=== PATIENT | male | born 1940 | race Caucasian/White ===

== ENCOUNTER 2016-06-16 08:13 | Day surgery (SDC) | payer BC ==
--- NOTE | ~2016-06-16 | EGD ---
EGD REPORT [facility] [address] [place]. [address] NAME: CATRACHITO JOHNSON : 40 STATUS : REG [facility] PAT#: [id number] AGE: 75 ADM/REG DATE : 06/16/16 MR#: [id number] REPORT SERV DATE: 06/16/16 DICTATED BY: YRIS MATTHEW DATE: 06/16/16 REPORT STATUS : Draft TRANSCRIBED BY: [employer] DATE: 06/16/16 [facility] Patient Name: Catrachito Johnson Date of : 1940 Attending MD: YRIS MATTHEW MD Procedure Date No Time: 06/16/2016 Procedure: Colonoscopy Indications: Rectal bleeding, FH of Colon Cancer - 1st degree relative, FH of Colon Cancer -distant relative Referring MD: SABINE MICHEL MD Medicines: as per anesthesia Complications: No immediate complications. Procedure: Pre-Anesthesia Assessment: - ASA Grade Assessment: III - A patient with severe systemic disease. After I obtained informed consent, the scope was passed under direct vision. Throughout the procedure, the patient's blood pressure, pulse, and oxygen saturations were monitored continuously. The [facility] [id number] was introduced through the anus and advanced to the cecum, identified by appendiceal orifice and ileocecal valve. The colonoscopy was somewhat difficult due to multiple diverticula in the colon and a tortuous colon. The patient tolerated the procedure. The quality of the bowel preparation was adequate to identify polyps. Findings: The perianal and digital rectal examinations were normal. A sessile polyp was found in the ascending colon. The polyp was 6 mm in size. The polyp was removed with a jumbo cold forceps. Resection and retrieval were complete. Multiple small and large-mouthed diverticula were found in the sigmoid colon, in the descending colon, in the transverse colon and in the ascending colon. Internal hemorrhoids were found during endoscopy and were mild. xrt changes distal rectum Impression: - One 6 mm polyp in the ascending colon. Resected and retrieved. - Diverticulosis in the sigmoid colon, in the descending colon, in the transverse colon and in the ascending colon. - Internal hemorrhoids. Recommendation: - Await pathology results. EGD REPORT [address] [address] NAME: CATRACHITO JOHNSON : [birth year] STATUS : REG [facility] PAT#: [id number] AGE: 75 ADM/REG DATE : 06/16/16 MR#: [id number] REPORT SERV DATE: 06/16/16 DICTATED BY: YRIS MATTHEW. DATE: 06/16/16 REPORT STATUS : Draft TRANSCRIBED BY: [employer] DATE: 06/16/16 - Repeat colonoscopy for surveillance based on pathology results. Procedure Code(s): --- Professional --- 25612, Colonoscopy, flexible, proximal to splenic flexure; with biopsy, single or multiple Diagnosis Code(s): --- Professional --- D12.2, Benign neoplasm of ascending colon K64.8, Other hemorrhoids K57.30, Diverticulosis of large intestine without perforation or abscess without bleeding K62.5, Hemorrhage of anus and rectum Z80.0, Family history of malignant neoplasm of digestive organs CPT copyright 2013 [employer]. All rights reserved. The codes documented in this report are preliminary and upon phlebotomist medical lab assistant review may be revised to meet current compliance requirements. YRIS MATTHEW MD 06/16/2016 9:43 AM This report has been signed electronically. Number of Addenda: 0 Note Initiated On: 06/16/2016 9:00 AM Scope Withdrawal Time 0 hours 8 minutes 15 seconds [address] [place] [address]
[~2016-06-16 08:13] MED LIST: ALEVE220 MG PO; ASAB PO; CARDCD240 PO; CASODEX 50 MG T50 MG PO; COUMADIN3 MG PO; COUMADIN4 MG PO; ELIQUIS 5 MG TAB5 MG PO; LIPITOR20 PO; LOP100 PO; METAMUCIL CAN7 OZ PO; NIACIN TR1000 MG PO; NIASPAN750 PO; PRIN10 PO; PRIN2.5 PO; TOPXL100 PO; TYLENOL ARTH650 MG PO; VYTORIN 10/20 T1 TAB PO
== END 2016-06-16 23:59 | disposition home or self-care (01) ==
LOC: DMU 08:13
PROVIDERS: Internal Medicine Gastroenterology
PROC: 0DBK8ZX Excision of Ascending Colon, Via Natural or Artificial Opening Endoscopic, Diagnostic (ICD-10-PCS; principal; 2016-06-16 09:00)
DX: K63.5 Polyp of colon (principal); K64.8 Other hemorrhoids; K57.30 Diverticulosis of large intestine without perforation or abscess without bleeding; I48.91 Unspecified atrial fibrillation; I25.10 Atherosclerotic heart disease of native coronary artery without angina pectoris; I10 Essential (primary) hypertension; E78.00 Pure hypercholesterolemia, unspecified; M06.9 Rheumatoid arthritis, unspecified; Z95.1 Presence of aortocoronary bypass graft; Z80.0 Family history of malignant neoplasm of digestive organs; Z85.46 Personal history of malignant neoplasm of prostate; Z79.82 Long term (current) use of aspirin; Z79.899 Other long term (current) drug therapy; Z98.890 Other specified postprocedural states; Z98.41 Cataract extraction status, right eye; Z98.42 Cataract extraction status, left eye
CPT/HCPCS: 88305

== ENCOUNTER 2016-11-30 02:45 | Observation (INO) | payer BC ==
[~2016-11-30] VITALS: Ht 180.3 cm; Wt 105.2 kg
--- NOTE | ~2016-11-30 | HP ---
History And Physical [id number] [place]. [address] NAME: CATRACHITO LOAIZA : 40 STATUS : ADM Edi PAT#: [id number] AGE: 76 ADM/REG DATE : 11/30/16 MR#: [id number] REPORT SERV DATE: 11/30/16 DICTATED BY: EUGENE SNOW DATE: 11/30/16 REPORT STATUS : Draft TRANSCRIBED BY: [employer] DATE: 11/30/16 DATE OF ADMISSION: 11/30/2016 REASON FOR ADMISSION: Nausea, abdominal pain, and small bowel obstruction on CT. HISTORY OF PRESENT ILLNESS: This is a very pleasant, 76-year-old gentleman, presents with a one-day history of abdominal pain. It was initially in the right lower quadrant and described as "gas." The patient played golf later in the day and had progressive abdominal distention and bloating. He had progressive pain across the entire abdomen and presented to the emergency department. He is nontoxic with a normal white blood cell count and a heart rate of 74. He has a history of atrial fibrillation, on anti-platelet therapy. He has a history of coronary artery disease with coronary artery bypass and stent placement and hypercholesterolemia. He had prostate cancer with robotic prostatectomy and radiation. He states his PSA has been rising. He denies any other constitutional symptoms. He had a recent colonoscopy per Dr. Keating. They found diverticulosis and no report per the patient of other abnormalities. He had a CT scan here that revealed cholelithiasis without any evidence of obstruction or inflammation, bilateral inguinal hernias, and an incisional hernia. He was also noted to have dilated small bowel loops in the proximal to mid small bowel with no transition point, and inflammatory changes in the involved associated mesentery. In light of the patient's symptoms and pain and history of rising PSA, he will be admitted for observation. He states he is currently having flatus and therefore after discussion with the patient, we will not treat with an NG tube at this time and reserve it for failure of improvement with IV fluids and bowel rest. He is in agreement with the current treatment plan and diagnosis. His is at the bedside. PAST MEDICAL HISTORY: As above. PAST SURGICAL HISTORY: Appendectomy and prostatectomy. ALLERGIES: NO KNOWN DRUG OR LATEX ALLERGIES. FAMILY HISTORY: Negative for colon cancer or polyps. SOCIAL HISTORY: The patient is . He lives with his spouse. He denies tobacco or illicit drug usage. He drinks alcohol rarely. 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 REVIEW OF SYSTEMS: The patient has abdominal pain and nausea. He has a history of constipation but none at this time. He has some urinary incontinence. He denies any chest pain, shortness of breath, dyspnea on exertion, syncope, palpitations, jaundice, itching, bright red blood per rectum, melena, or change in the caliber of his stools. He has no emesis and specifically, no coffee-grounds emesis. PHYSICAL EXAMINATION: GENERAL: A well-developed male, in no apparent distress. NECK: Supple. No adenopathy. History And Physical [address] [address] NAME: CATRACHITO LOAIZA : 40 STATUS : ADM Edi PAT#: [id number] AGE: 76 ADM/REG DATE : 11/30/16 MR#: [id number] REPORT SERV DATE: 11/30/16 DICTATED BY: EUGENE SNOW DATE: 11/30/16 REPORT STATUS : Draft TRANSCRIBED BY: EVANGELINA DATE: 11/30/16 CARDIOVASCULAR: Regular rate and rhythm. RESPIRATORY: Clear to auscultation. ABDOMEN: Soft. The patient has some diffuse abdominal tenderness. He has well-healed incisions. He has some mild voluntary guarding, but no peritoneal signs or rebound. BACK: No CVA tenderness. EXTREMITIES: No clubbing, cyanosis, edema, or jaundice. LABORATORY DATA: White blood cell count 7900, H and H 10.6 and 30.5, blood glucose 114. Lactate 1.6. Liver function studies are normal. ASSESSMENT: 1. Small bowel obstruction on CT with abdominal pain and distention. 2. History of prostate cancer, rising PSA. 3. Atrial fibrillation with anti-platelet therapy. 4. Coronary artery disease, status post coronary artery stent placement and coronary artery bypass. 5. Hyperlipidemia. PLAN: The patient will be admitted for bowel rest, IV fluids and serial physical exam and imaging. We will hold Eliquis for now in case the patient needs surgical intervention. We will cover with heparin in the interim until repeat exam and imaging in the a.m. SAGE/EVANGELINA Eugene Snow M.D. / [id number] CC: Sandip Kinsey D.O. Charles Lee Jackson, M.D.
[2016-11-30 04:07] LABS: BASOPHILS 0.1 %; BASOPHILS ABSOLUTE 0.01 10/3/uL (0.0-0.16); EOSINOPHILS 0.5 %; EOSINOPHILS ABSOLUTE 0.04 10/3/uL (0.0-0.53); IMMATURE GRANULOCYTES 0.1 %; IMMATURE GRANULOCYTES ABSOLUTE 0.01 10/3/uL (0.0-0.11); LYMPHOCYTES 8.1 %; LYMPHOCYTES ABSOLUTE 0.64 10/3/uL (0.67-4.30); MEAN CORPUS HGB CONC 34.8 g/dL (32.0-36.0); MEAN CORPUSCULAR HEMOGLOB 32.7 pg (26.0-34.0); MEAN CORPUSCULAR VOLUME 94.1 fL (80-100); MEAN PLATELET VOLUME 9.5 fL (9.2-13.0); MONOCYTES 5.1 %; NEUTROPHILS 86.1 %; NEUTROPHILS ABSOLUTE 6.77 10/3/uL (2.02-8.40); RBC DISTRIBUTION WIDTH 12.6 % (12.0-16.0); WHITE BLOOD CELLS 7.9 10/3/uL (4.5-10.5)
[2016-11-30 04:09] LABS: HEMATOCRIT 30.5 % (40.0-51.0); HEMOGLOBIN 10.6 g/dL (13.6-17.8); MANUAL DIFF NO %; PLATELET COUNT 116 10/3/uL (150-400); RED CELL COUNT 3.24 10/6/uL (4.7-6.1)
[2016-11-30 04:29] LABS: ASCORBIC ACID (UR NOT ORDER) NEG (NEG); BILIRUBIN, URINE NEGATIVE (NEG); ER URINALYSIS TAT 0 Hrs 00 Mins; KETONE, URINE NEGATIVE (NEG); LEUKOCYTE ESTERASE(NOT OR NEG (NEG); NITRITE (URINE) NEG (NEG); WBC (NOT ORDERED) (RFLEX) 1 (0-5)
[2016-11-30] MEDS ORDERED: PEP20 PO (04:29)
[2016-11-30 05:29] LABS: LACTATE 1.6 MMOL/L (0.3-2.4)
[2016-11-30 05:45] LABS: ALBUMIN 3.4 G/DL (3.5-5.0); BUN (BLOOD UREA NITROGEN) 15 MG/DL (6-23); CHLORIDE, SERUM 112 MMOL/L (96-112); CO2 (CARBON DIOXIDE) 24 MMOL/L (24-34); CREATININE 0.76 MG/DL (0.70-1.30); GFR AFRICAN AMERICAN 103 ML/MIN (>=60); GFR NON AFRICAN AMERICAN 89 ML/MIN (>=60); GLUCOSE, SERUM 114 MG/DL (60-99); POTASSIUM, SERUM 4.3 MMOL/L (3.5-5.3); SGOT(AST) 20 U/L (5-40); SGPT(ALT) 19 U/L (5-65); SODIUM, SERUM 143 MMOL/L (135-148); TOTAL BILIRUBIN 1.2 MG/DL (0-1.2)
[2016-11-30 05:46] LABS: A/G RATIO 1.3 (0.7-1.9); ALKALINE PHOSPHATASE 56 U/L (45-117); GLOBULIN 2.6 G/DL (2.5-4.1)
[2016-11-30 06:11] LABS: INTERNATIONAL NORMAL RATI 1.3 UNITS (-); PROTIME (NOT ORD) 15.8 SEC (12.0-14.5)
[2016-12-01 05:51] LABS: BASOPHILS 0.5 %; BASOPHILS ABSOLUTE 0.02 10/3/uL (0.0-0.16); EOSINOPHILS 4.3 %; EOSINOPHILS ABSOLUTE 0.17 10/3/uL (0.0-0.53); IMMATURE GRANULOCYTES 0.3 %; IMMATURE GRANULOCYTES ABSOLUTE 0.01 10/3/uL (0.0-0.11); LYMPHOCYTES 26.6 %; LYMPHOCYTES ABSOLUTE 1.06 10/3/uL (0.67-4.30); MEAN CORPUS HGB CONC 34.9 g/dL (32.0-36.0); MEAN CORPUSCULAR HEMOGLOB 33.3 pg (26.0-34.0); MEAN CORPUSCULAR VOLUME 95.4 fL (80-100); MEAN PLATELET VOLUME 9.9 fL (9.2-13.0); MONOCYTES 8.3 %; MONOCYTES ABSOLUTE 0.33 10/3/uL (0.21-1.20); PLATELET COUNT 134 10/3/uL (150-400); RBC DISTRIBUTION WIDTH 12.6 % (12.0-16.0)
[2016-12-01 05:53] LABS: HEMATOCRIT 37.5 % (40.0-51.0); HEMOGLOBIN 13.1 g/dL (13.6-17.8); RED CELL COUNT 3.93 10/6/uL (4.7-6.1)
[2016-12-01 05:54] LABS: MANUAL DIFF NO %
[2016-12-01 05:58] LABS: BUN (BLOOD UREA NITROGEN) 12 MG/DL (6-23); CALCIUM, SERUM 8.6 MG/DL (8.5-10.4); CHLORIDE, SERUM 109 MMOL/L (96-112); CO2 (CARBON DIOXIDE) 28 MMOL/L (24-34); CREATININE 0.87 MG/DL (0.70-1.30); GFR AFRICAN AMERICAN 97 ML/MIN (>=60); GFR NON AFRICAN AMERICAN 84 ML/MIN (>=60); GLUCOSE, SERUM 110 MG/DL (60-99); POTASSIUM, SERUM 4.6 MMOL/L (3.5-5.3); SODIUM, SERUM 141 MMOL/L (135-148)
== END 2016-12-01 13:15 | disposition home or self-care (01) ==
LOC: ER 02:45 → 5SO 06:11 → ENPENDDIS 06:11 → 5SO 12-01 13:15
PROVIDERS: Emergency Medicine; Surgery
DX: K56.60 Unspecified intestinal obstruction (principal); I48.91 Unspecified atrial fibrillation; I25.10 Atherosclerotic heart disease of native coronary artery without angina pectoris; E78.5 Hyperlipidemia, unspecified; Z85.46 Personal history of malignant neoplasm of prostate; Z95.5 Presence of coronary angioplasty implant and graft; Z90.49 Acquired absence of other specified parts of digestive tract; Z98.890 Other specified postprocedural states; Z79.899 Other long term (current) drug therapy
CPT/HCPCS: 74020; 74176; 80048; 80053; 81001; 83605; 83690; 85025; 85610; 93005; 96372; 96374; 96376; 99285; A9270-GY; G0378; J1885; J2405